=== PATIENT | female | born 1935 | race Two or more races ===

== ENCOUNTER 2017-04-17 14:19 | Emergency (ER) | payer MEDICARE, BC ==
[2017-04-17 14:31] VITALS: TEMP 98.1
[2017-04-17] MEDS ORDERED: DIPH,PERTUS(ACELL)TETVAC-LF 0.5 ML VIAL IM ONE (14:35)
[2017-04-17 15:04] LABS: Basophils % (A) 1 %; CH 30.3; CHCM 31.8; Eosinophils # (A) 0.2 k/uL (0-0.7); Eosinophils % (A) 3 %; HDW 2.47; Luc # (Auto) 0.14; Luc % (Auto) 2; Lymphocytes # (A) 1.1 k/uL (1.0-4.8); Lymphocytes % (A) 15 %; MCH 31.3 pg (25.0-35.0); MCHC 32.6 g/dL (31.0-37.0); Mean Platelet Volume 7.2; Monocytes # (A) 0.3 k/uL (0-1.0); Monocytes % (A) 5 %; Neutrophils # (A) 5.3 k/uL (1.3-7.7); Neutrophils % (A) 75 %; RBC 3.85 m/uL (3.80-5.40); WBC (Perox) 6.88
[2017-04-17 15:23] LABS: Anion Gap 11 mmol/L; Blood Urea Nitrogen 19 mg/dL (7-17); Calcium 8.8 mg/dL (8.4-10.2); Carbon Dioxide 19 mmol/L (22-30); Chloride 114 mmol/L (98-107); Glucose 101 mg/dL (74-99); Non-African American GFR(MDRD) 48 (>60 ml/min/1.73 sqM); Sodium 144 mmol/L (137-145)
[2017-04-17 15:25] LABS: Potassium 4.7 mmol/L (3.5-5.1)
[2017-04-17 15:27] LABS: Alcohol <10 mg/dL
[2017-04-17 15:42] LABS: INR 1.1 (<1.1); Partial Thromboplastin Time 23.6 sec (22.0-30.0); Prothrombin Time 10.7 sec (9.0-12.0)
--- NOTE | 2017-04-17 15:49 | CT ---
EXAMINATION TYPE: CT brain chris wo con DATE OF EXAM: 04/17/2017 COMPARISON: Brain 04/25/2015 HISTORY: 81-year-old female Facial injuries, Fall. History of hydrocephalus with Shunt placement CT DLP: Brain (1012.70) and C-spine (539.20) mGycm Automated exposure control for dose reduction was used. Technique: Examination of the head was done in axial plane without intravenous contrast. Coronal and sagittal reconstructions performed. CT of the cervical spine was obtained in axial plane without intravenous injection of contrast mater ial. Coronal and sagittal reformatted images were obtained from the axial views for evaluation of f ractures, spinal alignment and canal. FINDINGS: Head: There is moderate focal left paramedian frontal scalp hematoma. Prosthetic right globe and old blowout fracture of the medial right orbit. Orbits and globes appear i ntact otherwise and there is no calvarial fracture. There is no evidence of acute intracranial hemorrhage, acute ischemic changes, mass, mass-effect, or extra-axial fluid collection. There is no effacement of cerebral sulci or basal subarachnoid cister ns. There is no midline shift. Baig-white matter distinction is preserved. Left frontal [employer] shunt catheter tip stable at the midline anterior to the foramen of Scarlett. Continued moderate hydrocephalus. The third ventricle measures 2.1 cm Comments stable from prior exam. Paranasal sinuses and mastoid air cells are well pneumatized. Cervical spine: No craniocervical junction abnormality, predental space widening, or prevertebral soft tissue swellin g. Moderate disc/endplate degenerative change at C5-C6 and C6-C7 with disc osteophyte complexes and mild spinal canal stenosis at C6-C7. Multilevel facet and uncovertebral joint degenerative change with a grade 1 anterolisthesis at C4-C5. No acute fracture identified of the cervical spine. Reversal of the normal cervical lordosis. Large right paracentral disc protrusion at C3-C4, sagittal image 40. Very mild neuroforaminal stenoses, greatest on the left at C3-C4, on the right at C4-C5 and C5-C6. Marked enlargement of the left thyroid gland measuring up to 5.8 x 2.8 cm with heterogeneous density and slight mass effect with rightward deviation of the trachea. Sagittal and coronal reformatted images confirm above findings. COMBINED IMPRESSION: 1. Moderate sized focal left frontal scalp hematoma. No underlying calvarial fracture. 2. Stable moderate hydrocephalus as compared to 04/25/2015 with left frontal shunt catheter. No acute intracranial abnormality seen. 3. No acute fracture of the cervical spine. There is a degenerative grade 1 anterolisthesis at C4-C5. 4. A large right paracentral disc herniation at C3-C4 could be on a degenerative basis or could be po sttraumatic. Clinically correlate. 5. Variable neural foraminal narrowing as above. 6. Heterogeneous enlargement of the left thyroid lobe could reflect goiter or underlying nodules whic h should be further assessed with thyroid ultrasound on a nonemergent basis.
--- NOTE | 2017-04-17 16:00 | XR ---
EXAMINATION TYPE: XR chest 1V portable, XR pelvis AP view DATE OF EXAM: 04/17/2017 Comparison: None Clinical History: 81-year-old female with trip and fall today, pain, trauma Findings: CHEST: The heart is mildly enlarged. [employer] shunt catheters present on the left. Diffuse interstitial prominence has a chronic appearance. No consolidation, pneumothorax, or pleural effusion seen. There is comminuted fracture of the proximal left humerus, at least 2 part with a displaced surgical neck component. Subacute fracture is not excluded. Pelvis: Diffuse osteopenia with mild degenerative changes of both hips. SI joints appear symmetric and intact . Surgical material in the pelvis with multiple pelvic phleboliths. A [employer] shunt catheter tubing termin ates in the right pelvis. No displaced fracture seen. Impression: 1. Chest: Chronic appearing changes with cardiomegaly. No acute cardiopulmonary process. 2. Chest: Comminuted proximal left humerus fracture. At least 2 part fracture with a displaced surgic al neck component. This is suspected to represent a subacute fracture. Correlate with patient's traum a history. 3. Pelvis: Osteopenia and mild bilateral hip OA. No displaced fracture seen.
[2017-04-17 16:24] VITALS: PULSE 90; RESP 18
[2017-04-17] MEDS ORDERED: MORPHINE SULFATE 4 MG/ML SYRINGE IVP STA (16:25)
[2017-04-17] MEDS ORDERED: TOPICAL SKIN ADHESIVE 1 EACH AMP TOPICAL ONE (16:26)
--- NOTE | 2017-04-17 16:28 | ED ---
General Adult HPI - General Chief complaint: Fall Stated complaint: FALL, FACIAL INJURIES, POSS HEAD INJURY Time Seen by Provider: 04/17/17 14:30 Source: patient, family, EMS, RN notes reviewed Mode of arrival: EMS Limitations: no limitations - History of Present Illness Initial comments: 81-year-old female presents status post fall. Patient states she fell down her porch step falling onto her face. Patient reports she lost her balance. Denies any chest pain or shortness of breath prior to the fall. Denies any palpitations. Patient states she did hit her face but did not have loss of consciousness. Patient denies any blood thinners. Complains also of left arm pain, however she states she has a chronic fracture in her left humerus. Pain is unchanged today. - Related Data Home Medications Medication Instructions Recorded Confirmed ALPRAZolam [Xanax XR] 0.5 mg PO DAILY 04/17/17 04/17/17 ALPRAZolam [Xanax] 0.25 mg PO BID 04/17/17 04/17/17 Losartan [Cozaar] 25 mg PO DAILY 04/17/17 04/17/17 Pantoprazole Sodium [Protonix] 40 mg PO DAILY 04/17/17 04/17/17 Simvastatin [Zocor] 20 mg PO HS 04/17/17 04/17/17 Sucralfate [Carafate] 1 gm PO BID 04/17/17 04/17/17 traMADol HCL [Ultram] 50 mg PO BID 04/17/17 04/17/17 Allergies Allergy/AdvReac Type Severity Reaction Status Date / Time No Known Allergies Allergy Verified 04/17/17 15:52 Review of Systems ROS Statement: Those systems with pertinent positive or pertinent negative responses have been documented in the HPI. ROS Other: All systems not noted in ROS Statement are negative. Respiratory: Denies: cough Cardiovascular: Denies: chest pain, palpitations Past Medical History Past Medical History: Eye Disorder Additional Past Medical History / Comment(s): cervical ca, glass eye on right, shunt in brain for "water on the brain", fracture of left arm that cannot be repaired surgically History of Any Multi-Drug Resistant Organisms: None Reported Past Surgical History: Hysterectomy Additional Past Surgical History / Comment(s): oopharectomy, glass eye, shunt in brain Past Psychological History: No Psychological Hx Reported Smoking Status: Never smoker Past Alcohol Use History: None Reported Past Drug Use History: None Reported General Exam Limitations: no limitations General appearance: alert, in no apparent distress Head exam: Present: other (Large frontal hematoma, 1 cm laceration over the nasal bridge.). Absent: atraumatic Eye exam: Present: PERRL, EOMI, other (rt eye is prosthetic, ) ENT exam: Present: normal exam Neck exam: Present: normal inspection, full ROM. Absent: tenderness Respiratory exam: Present: normal lung sounds bilaterally. Absent: respiratory distress Cardiovascular Exam: Present: regular rate, normal rhythm GI/Abdominal exam: Present: soft. Absent: distended, tenderness, guarding Extremities exam: Present: normal capillary refill, other. Absent: pedal edema (Left upper extremity tender to palpation, healing humerus fracture.) Neurological exam: Present: alert, oriented X3. Absent: motor sensory deficit Psychiatric exam: Present: normal affect, normal mood Skin exam: Present: warm, dry Course Vital Signs 04/17/17 04/17/17 04/17/17 14:26 15:32 16:01 Temperature 98.1 F Pulse Rate 92 88 90 Respiratory 18 20 18 Rate Blood Pressure 158/74 149/66 146/65 O2 Sat by Pulse 97 99 97 Oximetry 04/17/17 17:33 Temperature 98.1 F Pulse Rate 90 Respiratory 18 Rate Blood Pressure 144/80 O2 Sat by Pulse 97 Oximetry - Reevaluation(s) Reevaluation #1: 04/17/17 17:42 Case is discussed with family who is at bedside, they prefer transfer to the patient's primary [facility] where her neurosurgeon practices. EKG Findings - EKG Comments: EKG Findings:: EKG: Sinus rhythm with occasional PVC, ventricular, DE interval 146, QRS duration 124, signs of a left bundle branch block, QTC is 478. Medical Decision Making - Medical Decision Making 81-year-old female presenting with fall, patient does have a scalp hematoma and facial laceration. There is no loss of consciousness. CT shows hydrocephalus which does appear stable compared to CT in 2015. Patient has had shunt placed for hydrocephalus at [facility]. No cervical spine fracture or subluxation, however there is a disc herniation which may be new given history of trauma, however this may also be remote. Chest x-ray does reveal left humerus fracture which is subacute. Laboratory studies are reviewed and are unremarkable. EKG does show a left bundle branch block which may be new. No old for comparison. Patient will be transferred for further evaluation of left bundle branch as well as evaluation of hydrocephalus. There is no intracranial hemorrhage. Patient's neurological examination is nonfocal. Patient's family is at bedside and they're agreeable with transfer. Diagnosis: Closed head injury, frontal hematoma, hydrocephalus, subacute left humerus fracture, left bundle branch block. - Lab Data Result diagrams: 04/17/17 14:52 04/17/17 14:52 Lab Results 04/17/17 04/17/17 04/17/17 Range/Units 14:52 14:52 14:52 WBC 7.0 (3.8-10.6) k/uL RBC 3.85 (3.80-5.40) m/uL Hgb 12.0 (11.4-16.0) gm/dL Hct 37.0 (34.0-46.0) % MCV 96.0 (80.0-100.0) fL MCH 31.3 (25.0-35.0) pg MCHC 32.6 (31.0-37.0) g/dL RDW 13.0 (11.5-15.5) % Plt Count 210 (150-450) k/uL Neutrophils % 75 % Lymphocytes % 15 % Monocytes % 5 % Eosinophils % 3 % Basophils % 1 % Neutrophils # 5.3 (1.3-7.7) k/uL Lymphocytes # 1.1 (1.0-4.8) k/uL Monocytes # 0.3 (0-1.0) k/uL Eosinophils # 0.2 (0-0.7) k/uL Basophils # 0.0 (0-0.2) k/uL PT 10.7 (9.0-12.0) sec INR 1.1 (<1.1) APTT 23.6 (22.0-30.0) sec Sodium 144 (137-145) mmol/L Potassium 4.7 (3.5-5.1) mmol/L Chloride 114 H (98-107) mmol/L Carbon Dioxide 19 L (22-30) mmol/L Anion Gap 11 mmol/L BUN 19 H (7-17) mg/dL Creatinine 1.10 H (0.52-1.04) mg/dL Est GFR (MDRD) Af Amer 58 (>60 ml/min/1.73 sqM) Est GFR (MDRD) Non-Af 48 (>60 ml/min/1.73 sqM) Glucose 101 H (74-99) mg/dL Calcium 8.8 (8.4-10.2) mg/dL Troponin I (0.000-0.034) ng/mL Urine Color Urine Appearance (Clear) Urine pH (5.0-8.0) Ur Specific [place] (1.001-1.035) Urine Protein (Negative) Urine Glucose (UA) (Negative) Urine Ketones (Negative) Urine Blood (Negative) Urine Nitrite (Negative) Urine Bilirubin (Negative) Urine Urobilinogen (<2.0) mg/dL Ur Leukocyte Esterase (Negative) Serum Alcohol <10 mg/dL Blood Type Blood Type Recheck Antibody Screen Spec Expiration Date 04/17/17 04/17/17 04/17/17 Range/Units 14:52 15:47 16:10 WBC (3.8-10.6) k/uL RBC (3.80-5.40) m/uL Hgb (11.4-16.0) gm/dL Hct (34.0-46.0) % MCV (80.0-100.0) fL MCH (25.0-35.0) pg MCHC (31.0-37.0) g/dL RDW (11.5-15.5) % Plt Count (150-450) k/uL Neutrophils % % Lymphocytes % % Monocytes % % Eosinophils % % Basophils % % Neutrophils # (1.3-7.7) k/uL Lymphocytes # (1.0-4.8) k/uL Monocytes # (0-1.0) k/uL Eosinophils # (0-0.7) k/uL Basophils # (0-0.2) k/uL PT (9.0-12.0) sec INR (<1.1) APTT (22.0-30.0) sec Sodium (137-145) mmol/L Potassium (3.5-5.1) mmol/L Chloride (98-107) mmol/L Carbon Dioxide (22-30) mmol/L Anion Gap mmol/L BUN (7-17) mg/dL Creatinine (0.52-1.04) mg/dL Est GFR (MDRD) Af Amer (>60 ml/min/1.73 sqM) Est GFR (MDRD) Non-Af (>60 ml/min/1.73 sqM) Glucose (74-99) mg/dL Calcium (8.4-10.2) mg/dL Troponin I 0.014 (0.000-0.034) ng/mL Urine Color Yellow Urine Appearance Clear (Clear) Urine pH 5.5 (5.0-8.0) Ur Specific [place] 1.021 (1.001-1.035) Urine Protein Trace H (Negative) Urine Glucose (UA) Negative (Negative) Urine Ketones Negative (Negative) Urine Blood Negative (Negative) Urine Nitrite Negative (Negative) Urine Bilirubin Negative (Negative) Urine Urobilinogen 2.0 (<2.0) mg/dL Ur Leukocyte Esterase Negative (Negative) Serum Alcohol mg/dL Blood Type O Positive Blood Type Recheck No Antibody Screen NEGATIVE Spec Expiration Date 04/20/2017 - 2347 Disposition Clinical Impression: Fall, Left bundle branch block, Hydrocephalus Disposition: OTHER INSTITUTION NOT DEFINED Condition: Good Referrals: Nonstaff,Physician [Primary Care Provider] - 1-2 days Time of Disposition: 16:27 - Out of Hospital Transfer - Req. Specs Out of Hospital Transfer - Requested Specifics: Other Non-Acute (Transfer to [facility] in [facility])
[2017-04-17 16:35] LABS: Appearance,Urine Clear (Clear); Bilirubin,Urine Negative (Negative); Glucose,Urine (UA) Negative (Negative); Ketones,Urine Negative (Negative); Leukocyte Esterase,Urine Negative (Negative); Nitrite,Urine Negative (Negative); PH, Urine 5.5 (5.0-8.0); Protein,Urine Trace (Negative); Specific Gravity,Urine 1.021 (1.001-1.035); UA Billing (MACRO vs. MICRO) CHEM
[2017-04-17 17:35] VITALS: BP 144/80
== END 2017-04-17 17:48 | disposition short-term general hospital (02) ==
LOC: EC 14:19
DX: S01.21XA Laceration without foreign body of nose, initial encounter (principal); S00.03XA Contusion of scalp, initial encounter; I44.7 Left bundle-branch block, unspecified; G91.9 Hydrocephalus, unspecified; Z23 Encounter for immunization; Z85.41 Personal history of malignant neoplasm of cervix uteri; Z79.891 Long term (current) use of opiate analgesic; Z79.899 Other long term (current) drug therapy; W10.9XXA Fall (on) (from) unspecified stairs and steps, initial encounter
CPT/HCPCS: 99285; 90471; 96374; 36415; 93005; 86900; 86901; 80048; 84484; 85025; 85610; 85730; 86850; 81003; 80320; 71010; 72170; 72125; 70450; 90715; J2270